=== PATIENT | male | born 1940 | race Caucasian/White ===

== ENCOUNTER → 2019-09-06 | Emergency (ER) | payer OTHER ==
[2019-09-06 16:07] LABS: Anion Gap 12 mmol/L (10-20); BUN (Urea Nitrogen) 27 mg/dL (8.4-25.7); Calc. Creatinine Clearance 0 mL/min (70-130); Calcium 9.4 mg/dL (7.8-10.44); Carbon Dioxide 24 mmol/L (23-31); Chloride 108 mmol/L (98-107); Estimated GFR-MDRD 31; Glucose 99 mg/dL (83-110); Potassium 4.2 mmol/L (3.5-5.1); Sodium 140 mmol/L (136-145)
[2019-09-06 16:08] LABS: Anisocytosis SLIGHT = 6-15 cells (100X) (0-5/hpf); Elliptocytes SLIGHT = 2-5 cells (100X) (0-1/hpf); Eosinophils 1 % (0-10); Hemoglobin 8.1 g/dL (14.0-18.0); Lymphocytes 27 % (21-51); MDiff Complete? YES; Mean Corpuscular HGB CONC 32.1 g/dL (32.0-36.0); Mean Corpuscular Hemoglobin 32.1 pg (27.0-31.0); Mean Corpuscular Volume 99.9 fL (78.0-98.0); Mean Platelet Volume 5.9 fL (7.4-10.4); Monocytes 24 % (0-10); Neutrophil 48 % (42-75); Platelet Count 300 thou/uL (130-400); Poikilocytosis SLIGHT = 6-15 cells (100X) (0-5/hpf); RBC Distribution Width 24.5 % (11.5-14.5); Red Blood Cell (RBC) Count 2.52 mill/uL (4.70-6.10); Schistocytes SLIGHT = 2-5 cells (100X) (0-1/hpf); Tear Drops SLIGHT = 2-5 cells (100X) (0-1/hpf); White Blood Cell (WBC) Count 4.4 thou/uL (4.8-10.8)
[2019-09-06 16:58] LABS: Bilirubin Small (Negative); Blood, Urine Negative (Negative); Glucose, Urine (Dipstick) Negative (Negative); Leukocyte Negative (Negative); Nitrite Negative (Negative); Protein, Urine (Dipstick) 100 mg/dL (Neg-Trace)
[2019-09-06 16:59] LABS: Clarity Hazy (Clear)
[2019-09-06 17:00] LABS: Bacteria/HPF Rare-Few HPF (None Seen); Other Microscopic Description C&S SET UP; RBC/HPF 0-3 HPF (0-3); Squamous Epithelial 0-3 HPF (0-3); WBC/HPF 0-3 HPF (0-3)
--- NOTE | 2019-09-06 17:55 | CT ---
CT ABDOMEN AND PELVIS WITHOUT CONTRAST 09/06/[address] of the abdomen and pelvis was done without oral or IV contrast. Axial slices were acquired followed by coronal and sagittal reconstructions. The main finding on the study is a tiny distal left ureteral calculus at the UVJ. It is no more than 2 mm wide but it is causing moderate left hydronephrosis and hydroureter. Some retained nonobstructin g stones still exist in the left kidney. None are seen in the right. There does appear to be a cyst i n the lower pole of the right kidney measuring 2.6 cm in diameter. The lung bases are clear. The liver, spleen, pancreas, adrenal glands, and gallbladder were unremarka ble in appearance. There is an infrarenal abdominal aortic aneurysm that extends to the bifurcation. Maximal width was 3.7 cm. The aorta is densely calcified. CT of the pelvis showed no additional findings beyond the small distal left ureteral calculus. The pr ostate is generous in size. The patient has a known compression fracture of L1. There is significant retropulsion of the fragment s narrowing the AP diameter of the spinal canal at this level to 7 to 8 mm. Damage to some of the tra nsverse processes in the upper lumbar region are evident, including the right transverse process of L 1 and the left processes of L2 and L3. IMPRESSION: 1. 2 mm distal left ureteral calculus at the left UVJ causing moderate left hydronephrosis. 2. Retained stones in the left kidney that are nonobstructing. 3. 3.7 cm infrarenal abdominal aortic aneurysm. 4. Prior L1 fracture as well as adjacent transverse processes fractures. Restriction of the AP d iameter of the spinal canal at the L1 level due to retropulsed fragments. Findings discussed with Dr. Jackson at 1600 on 09/06/19. POS: HOME
== END ==
LOC: BURERS 15:03
DX: N13.2 Hydronephrosis with renal and ureteral calculous obstruction (principal); N28.9 Disorder of kidney and ureter, unspecified; D64.9 Anemia, unspecified
CPT/HCPCS: 36415; 74176; 80048; 81003; 81015; 85025; 87086; 96360

== ENCOUNTER 2023-01-01 10:59 | Emergency (ER) | payer OTHER ==
[2023-01-01 11:36] LABS: Hemoglobin 7.6 g/dL (14.0-18.0); Mean Corpuscular Hemoglobin 34.1 pg (27.0-31.0); Platelet Count 227 10x3/uL (130-400); RBC Distribution Width 25.4 % (11.5-14.5); Red Blood Cell (RBC) Count 2.23 mill/uL (4.70-6.10); White Blood Cell (WBC) Count 4.6 10x3/uL (4.8-10.8)
[2023-01-01 11:45] LABS: Bilirubin Small (Negative); Blood, Urine Negative (Negative); Clarity Clear (Clear); Glucose, Urine (Dipstick) Negative (Negative); Ketone, Urine Negative (Negative); Leukocyte Negative (Negative); Nitrite Negative (Negative); Protein, Urine (Dipstick) 100 mg/dL (Neg-Trace)
[2023-01-01 11:52] LABS: ALT (SGPT) 20 U/L (8-55); AST (SGOT) 14 U/L (5-34); Albumin 4.4 g/dL (3.4-4.8); Alkaline Phosphatase 66 U/L (40-110); Anion Gap 11 mmol/L (10-20); BUN (Urea Nitrogen) 15 mg/dL (8.4-25.7); Calc. Creatinine Clearance 0 mL/min (70-130); Calcium 9.2 mg/dL (7.8-10.44); Carbon Dioxide 23 mmol/L (23-31); Chloride 111 mmol/L (98-107); Estimated GFR 88; Globulin 3.9 g/dL (2.4-3.5); Glucose 116 mg/dL (83-110); Lipase 26 U/L (8-78); Magnesium 2.1 mg/dL (1.6-2.6); Potassium 3.8 mmol/L (3.5-5.1); Protein, Total 8.3 g/dL (5.8-8.1); Sodium 141 mmol/L (136-145)
[2023-01-01 11:54] LABS: Bacteria/HPF Rare-Few HPF (None Seen); Mucous/LPF Rare LPF (<2+); RBC/HPF 0-3 HPF (0-3); Squamous Epithelial 0-3 HPF (0-3); WBC/HPF None Seen HPF (0-3)
[2023-01-01 12:04] LABS: Anisocytosis MARKED = >30 cells (100X) (0-5/hpf); Band 5 % (5-11); Elliptocytes SLIGHT = 2-5 cells (100X) (0-1/hpf); Hypochromia SLIGHT = 6-15 cells (100X) (0-5/hpf); Lymphocytes 19 % (21-51); MDiff Complete? YES; Macrocytosis SLIGHT = 6-15 cells (100X) (0-5/hpf); Monocytes 15 % (0-10); Neutrophil 57 % (42-75); Platelet Morphology Comment Appears Adequate; Reactive Lymphocytes 4 % (0-10); Schistocytes SLIGHT = 2-5 cells (100X) (0-1/hpf); Tear Drops SLIGHT = 2-5 cells (100X) (0-1/hpf)
[2023-01-01] MEDS ORDERED: Furosemide 40 MG/4 ML VIAL ONE (12:52)
== END 2023-01-01 13:52 | disposition home or self-care (01) ==
LOC: BURERS 10:59
DX: I11.0 Hypertensive heart disease with heart failure (principal); I50.9 Heart failure, unspecified; D72.819 Decreased white blood cell count, unspecified; R05.9 Cough, unspecified; E78.5 Hyperlipidemia, unspecified
CPT/HCPCS: 71045; 80053; 81003; 81015; 83605; 83690; 83735; 83880; 84443; 84484; 85025; 85379; 93005; 96374; J1940